=== PATIENT | male | born 1935 ===

== ENCOUNTER 2019-09-03 07:33 | Inpatient (IN) | payer MEDICARE ==
--- NOTE | 2019-09-03 08:32 | Emergency Department Report ---
<CHUCKIE MCKEON M - Last Filed: 09/03/19 12:17> ED Fall HPI - General Chief Complaint: Fall Stated Complaint: FALL/NOSE BLEED INJURY - Related Data Allergies Allergy/AdvReac Type Severity Reaction Status Date / Time No Known Allergies Allergy Verified 09/03/19 12:39 ED Course - Reevaluation(s) Reevaluation #1: I saw and examined this patient. History obtained is that he has had loss of coordination and a gait disturbance for greater than 12 hours. He states that he attempted to walk to the bathroom on the plane but had difficulty in walking. This is more than 12 hours prior to his arrival. When he disembarked, he had a near syncopal episode causing jury to his nose and left hand. He states that he recalls the incident and does not believe he lost consciousness. He does not complain of neck pain at all. He states that he is unable to walk and was found to be extremely ataxic even attempting to sit up. Indeed he was really not able to sit up due to apparent truncal ataxia. Physical exam was remarkable for HEENT the patient does have a nasal lac soft tissue swelling and deformity Neck no posterior tenderness normal range of motion without discomfort Cardiovascular regular rhythm and rate without murmur Pulmonary clear to auscultation GI the abdomen is soft nontender Musculokeletal patient has soft tissue swelling of several fingers of his left and. He is particularly tender over the PIP of the fifth digit Neurological exam The patient had no dysmetric on finger-nose testing. He had no drift. Sensory was intact. His mental status exam is intact. He did however have severe truncal ataxia. Gait could not be tested. NIH stroke score was 0 Impressions #1 near syncope #2 pulmonary hypertension #3 nasal fractures #4 for trauma to left hand Images reviewed I thought there might be a question of some asymmetric lucency in the cerebellum on the left. However this was read by the radiologist as No acute process. Chest CT showed no pulmonary embolism but pruning of vessels consistent with pulmonary hypertension. The CT of the face showed nasal fractures. I will order a hand x-ray. Plan Patient will be given aspirin. He is not a candidate for TPA. His last known well time is well more than 12 hours. I do suspect he may have had a cerebellar stroke. Further workup by the hospitalist staff upon admission. Suture per mid-level as indicated. 09/03/19 12:17 09/03/19 12:23 ED Medical Decision Making - Lab Data Result diagrams: 09/03/19 08:51 09/03/19 08:51 ED Disposition Clinical Impression: Syncopal episodes Qualifiers: Syncope type: unspecified Qualified Code(s): R55 - Syncope and collapse Nasal bone fractures Qualifiers: Encounter type: initial encounter Fracture type: closed Qualified Code(s): S02.2XXA - Fracture of nasal bones, initial encounter for closed fracture Disposition: DC-09 OP ADMIT IP TO THIS HOSP Is pt being admited?: Yes Does the pt Need Aspirin: Yes Condition: Stable Instructions: Syncope (ED) Time of Disposition: 12:30 <JULIAN LIN - Last Filed: 09/03/19 14:25> ED Fall HPI - General Source: patient, EMS Mode of arrival: Stretcher - History of Present Illness Initial Comments: This is a 84-year-old male is traveling from [place] ,16 hour flight. He has been visiting [facility] for the last 2 weeks. Patient states while on the airplane he started feeling nauseated. When he got off the plane he stumbled and fell forward striking his face.. His nose began to bleed and he was brought from [facility] to [facility]. He denies chest pain, fever and nausea. At this time bleeding from the nose is controlled. He is coughing up blood with mucous. Pt reports PMH of high cholesterol. Past surgical hx of hip replacement 5 years ago. Gallbladder removal. Pt is a resident of [place] which he has a connecting flight at 7pm today. Complaint: fall -: Sudden Fall From: standing When Fall Occurred: just prior to arrival Place Fall Occurred: other (airport) Prolonged Down Time?: no Symptoms Prior to Fall: lightheadedness, other (nausea) Location: face Severity scale (0 -10): 2 Associated Symptoms: other (nausea). denies: headache, neck pain, numbness, chest paint, shortness of breath, abdominal pain, hematuria, vertigo, confusion ED Review of Systems ROS: Stated complaint: FALL/NOSE BLEED INJURY Other details as noted in HPI Comment: All other systems reviewed and negative Constitutional: no symptoms reported Respiratory: denies: cough, shortness of breath, wheezing Cardiovascular: denies: chest pain, palpitations, dyspnea on exertion, edema, syncope Gastrointestinal: nausea. denies: abdominal pain Genitourinary: denies: as per HPI Skin: other (superficial laceration to face) Neurological: denies: headache, weakness, numbness, paresthesias, confusion, abnormal gait ED Past Medical Hx - Past Medical History Hx Hypertension: No Hx CVA: No Hx Heart Attack/AMI: No Hx Congestive Heart Failure: No Hx Deep Vein Thrombosis: No Hx Pulmonary Embolism: No Hx GERD: No Additional medical history: High Cholesterol - Surgical History Past Surgical History?: Yes Hx Cholecystectomy: Yes Additional Surgical History: kristy hip replacement - Social History Smoking Status: Never Smoker Substance Use Type: None ED Physical Exam - General Limitations: No Limitations General appearance: alert, in no apparent distress - Head Head exam: Present: other (1cm superficial laceration to corner of left eye, irregular shaped laceration to bridge of nose) - Eye Eye exam: Present: normal appearance, PERRL, EOMI - Neck Neck exam: Present: normal inspection, full ROM - Respiratory Respiratory exam: Present: normal lung sounds bilaterally. Absent: respiratory distress, wheezes, rales, rhonchi, chest wall tenderness, decreased breath sounds - GI/Abdominal GI/Abdominal exam: Present: soft, normal bowel sounds. Absent: distended, tenderness, guarding, rebound, rigid - Rectal Rectal exam: Present: deferred - Extremities Exam Extremities exam: Present: normal inspection, full ROM. Absent: tenderness, calf tenderness - Back Exam Back exam: Present: normal inspection - Neurological Exam Neurological exam: Present: alert, oriented X3, CN II-XII intact - Psychiatric Psychiatric exam: Present: normal affect - Skin Skin exam: Present: warm, dry, abrasion (nose swollen superficial laceration left face and anterior nose) ED Course Vital Signs 09/03/19 09/03/19 09/03/19 08:10 10:49 11:12 Temperature 97.5 F L 98.2 F Pulse Rate 76 77 93 H Respiratory 16 18 16 Rate Blood Pressure 154/76 Blood Pressure 180/88 175/88 [Right] O2 Sat by Pulse 96 93 93 Oximetry ED Medical Decision Making - Lab Data Result diagrams: 09/03/19 08:51 09/03/19 08:51 - Radiology Data Radiology results: report reviewed CTA FINDINGS: PULMONARY ARTERIES: No pulmonary emboli. THORACIC AORTA: Mild to moderate calcific plaque but no evidence of dissection or aneurysmal dilatation. HEART: No significant abnormality. CORONARY ARTERIES: No significant calcification. PLEURA: No pleural effusion. No pneumothorax. LYMPH NODES: No significant adenopathy. LUNGS: No acute air space or interstitial disease. Minimal bibasilar atelectasis CT HEAD No acute findings CT Facial bones Nasal bone fractures Xray left hand: No acute findings Critical Care Time: No Critical care attestation.: If time is entered above; I have spent that time in minutes in the direct care of this critically ill patient, excluding procedure time.
[2019-09-03] MEDS ORDERED: SODIUM CHLORIDE 0.9% 1000 ML 1,000 ML IV ONE (09:20)
[2019-09-03] MEDS ORDERED: ONDANSETRON 4 MG/2 ML INJ IV ONE (09:21)
[2019-09-03 09:30] LABS: Hematocrit 42.8 % (35.5-45.6); Hemoglobin 14.7 gm/dl (11.8-15.2); Mean Corpuscular HGB Conc 35 % (32-34); Mean Corpuscular Volume 103 fl (84-94); Platelet Count 155 K/mm3 (140-440); Red Blood Count 4.16 M/mm3 (3.65-5.03)
[2019-09-03 09:31] LABS: Alanine Aminotransferase 24 units/L (7-56); Albumin 4.4 g/dL (3.9-5); BUN/Creatinine Ratio 15; Blood Urea Nitrogen 15 mg/dL (9-20); Calcium 9.4 mg/dL (8.4-10.2); Hemolysis Index 13
[2019-09-03 10:09] LABS: INR 1.04 (0.87-1.13)
[2019-09-03 10:10] LABS: Partial Thromboplastin Time 27.5 Sec. (24.2-36.6)
--- NOTE | 2019-09-03 11:32 | Cat Scan Report ---
CT BRAIN: 09/03/2019 INDICATION / CLINICAL INFORMATION: headache/syncope. COMPARISON: None available. FINDINGS: BRAIN/INTRACRANIAL STRUCTURES: Unenhanced CT images of the brain demonstrate no evidence of acute int racranial abnormality. Ventricles and sulci are normal in size and shape for a patient of this age. There is no evidence of acute ischemic injury, hemorrhage, or mass. There are no abnormal extra-axial fluid collections. EXTRACRANIAL STRUCTURES: Unremarkable. There is evidence of nasal bone injury. Facial CT is reported separately. IMPRESSION: No acute abnormality. All CT scans at this location are performed using dose reduction to ALARA by means of automated expos ure control. Signer Name: Win Valverde MD Signed: 09/03/2019 11:27 AM Workstation Name: [email or web address]
--- NOTE | 2019-09-03 11:36 | Cat Scan Report ---
FACIAL CT 09/03/2019 HISTORY: Trauma. FINDINGS: CT images of the facial bones were obtained. Images are evaluated in the axial, coronal, an d sagittal plane. There is a fracture of the anterior margin of the nasal bones extending across the midline, best visu alized on the sagittal reformatted images. Soft tissue swelling is present, compatible with an acute fracture. There is irregularity of the position of the nasal septum, which appears to be primarily de velopmental in nature. There may be some acute superimposed buckling of the upper anterior nasal sept um. Some irregularity is seen associated with the inferior nasal spine, which may be an indication of an acute disruption of the inferior nasal spine. Some minimal mucosal thickening is present in ethmoid and maxillary sinuses. There is no evidence of air-fluid levels. IMPRESSION: Nasal bone fractures. All CT scans at this location are performed using dose reduction to ALARA by means of automated expos ure control. Signer Name: Win Valverde MD Signed: 09/03/2019 11:32 AM Workstation Name: [email or web address]
[2019-09-03 11:42] LABS: Bilirubin,Urine NEG (Negative); Blood,Urine NEG (Negative); Color,Urine Yellow (Yellow); Hyaline Casts,Urine 1 /LPF; Mucus,Urine FEW /HPF; Urobilinogen,Urine < 2.0 mg/dL (<2.0)
--- NOTE | 2019-09-03 11:44 | Cat Scan Report ---
CTA CHEST WITH IV CONTRAST INDICATION / CLINICAL INFORMATION: hemoptysis. TECHNIQUE: Axial CT images were obtained through the chest after injection of 100 mL IV contrast. 3 plane MIP an d/or 3D reconstructions were produced. All CT scans at this location are performed using CT dose redu ction for [facility] by means of automated exposure control. COMPARISON: None available. FINDINGS: PULMONARY ARTERIES: No pulmonary emboli. THORACIC AORTA: Mild to moderate calcific plaque but no evidence of dissection or aneurysmal dilatati on. HEART: No significant abnormality. CORONARY ARTERIES: No significant calcification. PLEURA: No pleural effusion. No pneumothorax. LYMPH NODES: No significant adenopathy. LUNGS: No acute air space or interstitial disease. Minimal bibasilar atelectasis. ADDITIONAL FINDINGS: Please note that the central pulmonary artery as well as the main right and left pulmonary arteries are markedly dilated. The right main pulmonary artery has a caliber of 3.8 cm. Th e left main pulmonary artery has a diameter of 3.5 cm. This is indicative of pulmonary arterial hyper tension. UPPER ABDOMEN: Incidental finding of small hepatic cyst. SKELETAL STRUCTURES: Diffuse spondylytic change within the thoracic spine. IMPRESSION: 1. No CT evidence for pulmonary embolism. 2. No acute pulmonary or pleural process. Mild bibasilar atelectasis. I see no etiology to account fo r the patient's hemoptysis. 3. Findings consistent with pulmonary arterial hypertension. Signer Name: Shahana Haro MD Signed: 09/03/2019 11:39 AM Workstation Name: [id number]
[2019-09-03 12:04] LABS: Total Cells Counted 100
[2019-09-03 12:05] LABS: Band Neutrophils # (Manual) 0.1 K/mm3; Basophils % (Manual) 0 % (0.0-1.8); Eosinophils % (Manual) 0 % (0.0-4.3); Platelet Estimate Consistent w Auto; Stomatocytes Few
[2019-09-03] MEDS ORDERED: ASPIRIN 325 MG TAB PO ONE ×2 (12:30→18:26)
[2019-09-03] MEDS ORDERED: NEOMY 3.5 MG/BACIT 400 UNITS/POLY B 5000 UNITS/GM OINT PACKET TP ONE (12:37)
[2019-09-03] MEDS ORDERED: ONDANSETRON 4 MG/2 ML INJ IV PRN (12:56)
[2019-09-03] MEDS ORDERED: ALBUTEROL 2.5 MG/3 ML NEBU IH PRN (12:56)
--- NOTE | 2019-09-03 12:59 | History and Physical Report ---
History of Present Illness Chief complaint: My legs just gave out History of present illness: 84 YO Male with HTN, HLD, OA presents to ED for evaluation. Pt states that he was in his usual state of health and was walking in the airport. Pt had recently deplaned after travelling from [facility] [place] on a 16hour "redeye" flight. Pt states that while walking on the jetway-he felt like his legs just "gave out" and he subsequently fell forward, and landed on his face, and subsequently lost consciousness. Pt regained consciousness several minutes later. EMS notified, and uopn arrival the patient was found to be in distress and transported to [facility]. Pt seen and evaluated in ED and found to have Syncope. Pt placed in observation status and admitted to the [facility] unit. Pt denies fever, chills, CP, palpitations, loss of bowel/bladder continence, unilateral leg swelling, vertigo, seizures, headache, skin rash, of recent known ill contacts. No prior admission for review. No medication listed at time of admission for reconciliation. Past History Past Medical History: other (see hpi') Past Surgical History: cholecystectomy, total hip replacement Social history: single. denies: smoking, alcohol abuse, prescription drug abuse Family history: hypertension Medications and Allergies Allergies Allergy/AdvReac Type Severity Reaction Status Date / Time No Known Allergies Allergy Verified 09/03/19 12:39 Active Meds: Active Medications Acetaminophen (Tylenol) 650 mg PO Q4H PRN PRN Reason: Pain MILD(1-3)/Fever >100.5/VARGAS Albuterol (Proventil) 2.5 mg IH Q4HRT PRN PRN Reason: Shortness Of Breath Sodium Chloride (Nacl 0.9% 1000 Ml) 1,000 mls @ 125 mls/hr IV ONCE ONE Stop: 09/03/19 17:19 Last Admin: 09/03/19 10:48 Dose: 125 mls/hr Documented by: Ondansetron HCl (Zofran) 4 mg IV Q8H PRN PRN Reason: Nausea And Vomiting Sodium Chloride (Sodium Chloride Flush Syringe 10 Ml) 10 ml IV BID JENNIFER Sodium Chloride (Sodium Chloride Flush Syringe 10 Ml) 10 ml IV PRN PRN PRN Reason: LINE FLUSH Review of Systems Constitutional: no weight loss, no weight gain, no fever, no chills Ears, nose, mouth and throat: no ear pain, no ear discharge, no tinnitis Cardiovascular: syncope, no chest pain, no orthopnea, no palpitations, no rapid/irregular heart beat, no edema, no lightheadedness, no shortness of breath Respiratory: no cough, no cough with sputum, no excessive sputum, no hemoptysis, no shortness of breath, no dyspnea on exertion Gastrointestinal: nausea, no vomiting, no diarrhea, no constipation, no change in bowel habits, no hematemesis, no coffee ground emesis Genitourinary Male: no hematuria, no flank pain, no discharge, no urinary frequency, no urinary hesitancy Rectal: no pain, no incontinence, no bleeding Musculoskeletal: no neck stiffness, no neck pain, no shooting arm pain, no arm numbness/tingling, no low back pain Integumentary: no rash, no pruritis, no sores, no wounds, no jaundice Neurological: no weakness, no parathesias, no numbness, no tingling, no seizures, no ataxia, no lack of coordination Psychiatric: no anxiety, no memory loss, no change in sleep habits, no sleep disturbances, no hypersomnia, no change in appetite, no change in libido, no suicidal ideation Endocrine: no polyphagia, no excessive thirst, no polydipsia, no polyuria, no nocturia, no excessive sweating, no flushing, no weight change Hematologic/Lymphatic: no easy bruising, no easy bleeding, no lymphadenopathy, no lymphedema Allergic/Immunologic: no urticaria, no allergic rhinitis, no persistent infections Exam - Constitutional Vitals: Temp Pulse Resp BP Pulse Ox 98.2 F 93 H 16 175/88 93 09/03/19 11:12 09/03/19 11:12 09/03/19 11:12 09/03/19 11:12 09/03/19 11:12 General appearance: Present: no acute distress, well-nourished - EENT Eyes: Present: PERRL ENT: hearing intact, clear oral mucosa - Neck Neck: Present: supple, normal ROM - Respiratory Respiratory effort: normal Respiratory: bilateral: CTA - Cardiovascular Heart Sounds: Present: S1 & S2. Absent: rub, click - Extremities Extremities: pulses symmetrical, No edema Peripheral Pulses: within normal limits - Abdominal General gastrointestinal: Present: soft, non-tender, non-distended, normal bowel sounds Male genitourinary: Present: normal - Integumentary Integumentary: Present: clear, warm, dry - Musculoskeletal Musculoskeletal: gait normal, strength equal bilaterally - Psychiatric Psychiatric: appropriate mood/affect, intact judgment & insight - Neurologic Neurologic: CNII-XII intact, moves all extremities Results - Labs CBC & Chem 7: 09/03/19 08:51 09/03/19 08:51 Labs: Abnormal lab results 09/03/19 09/03/19 Range/Units 08:51 08:51 MCV 103 H (84-94) fl MCH 35 H (28-32) pg MCHC 35 H (32-34) % Seg Neuts % (Manual) 87.0 H (40.0-70.0) % Lymphocytes % (Manual) 4.0 L (13.4-35.0) % Nucleated RBC % 1.0 H (0.0-0.9) % Seg Neutrophils # Man 8.6 H (1.8-7.7) K/mm3 Lymphocytes # (Manual) 0.4 L (1.2-5.4) K/mm3 Sodium 135 L (137-145) mmol/L Carbon Dioxide 18 L (22-30) mmol/L Glucose 150 H (75-100) mg/dL Total Bilirubin 1.60 H (0.1-1.2) mg/dL Assessment and Plan - Patient Problems (1) Syncopal episodes Current Visit: No Status: Acute Qualifiers: Syncope type: unspecified Qualified Code(s): R55 - Syncope and collapse Plan to address problem: CT head, neuro check, carotid doppler, serial blood pressure measurement, seizure precautions, thyroid panel, Echo, bnp. remote telemetry, Aubree Hallpike test (2) HTN (hypertension) Current Visit: Yes Status: Acute Qualifiers: Hypertension type: essential hypertension Qualified Code(s): I10 - Essential (primary) hypertension Plan to address problem: Monitor bp q shift, continue medical management. (3) HLD (hyperlipidemia) Current Visit: Yes Status: Acute Qualifiers: Hyperlipidemia type: mixed hyperlipidemia Qualified Code(s): E78.2 - Mixed hyperlipidemia Plan to address problem: lipid panel, low fat/low cholesterol diet (4) Nasal bone fractures Current Visit: No Status: Acute Qualifiers: Encounter type: initial encounter Fracture type: closed Qualified Code(s): S02.2XXA - Fracture of nasal bones, initial encounter for closed fracture (5) DVT prophylaxis Current Visit: Yes Status: Acute Plan to address problem: SCD to BLE while in bed, Pt ambulatory
[2019-09-03] MEDS ORDERED: SODIUM BICARB 8.4% 50 MEQ/50 ML SYRINGE IV ONE (13:00)
--- NOTE | 2019-09-03 13:25 | XRay Report ---
LEFT HAND 2 VIEW(S) INDICATION / CLINICAL INFORMATION: trauma left hand COMPARISON: None available. FINDINGS: BONES / JOINT(S): No acute fracture or subluxation. No significant arthritis. SOFT TISSUES: No significant abnormality. ADDITIONAL FINDINGS: None. Signer Name: Tish Rankin MD Signed: 09/03/2019 1:21 PM Workstation Name: [id number]
[2019-09-03 14:04] LABS: Free T4 (Free Thyroxine) 1.05 ng/dL (0.76-1.46)
[2019-09-03] MEDS ORDERED: ASPIRIN 325 MG TAB ONE (18:33)
[2019-09-03] MEDS: ACETAMINOPHEN 325 MG TAB PO PRN (22:19)
[2019-09-04 04:45] LABS: BUN/Creatinine Ratio 16; Blood Urea Nitrogen 16 mg/dL (9-20); Calcium 8.5 mg/dL (8.4-10.2); Hemolysis Index 34
[2019-09-04] MEDS: ACETAMINOPHEN 325 MG TAB PO PRN ×2 (09:17→15:58)
--- NOTE | 2019-09-04 12:41 | Discharge Summary ---
Providers - Providers Date of Admission: 09/03/19 12:56 Date of discharge: 09/05/19 Attending physician: TERRENCE PICKARD 09/04/19 10:26 Physical Therapy Evaluation and Treat [CONS] Routine Comment: Reason For Exam: placement [facility] Condition: Stable Pertinent studies: CT head Cta chest Face CT hand XRY Hospital course: 84 YO Male with crohn's disease, HTN, HLD, OA presents to ED for evaluation after having a [place]opal episode at airport. EMS notified, and transported to [facility]. Pt seen and evaluated in ED and placed in observation status and admitted to the [facility] unit. Discharge diagnosis: / Syncopal episodes likely vasovagal, CT head negative .CTA chest negative for PE /HTN (hypertension), stable / HLD (hyperlipidemia) / Nasal bone fractures, outpt f/u /Diarrhea with h/o crohn's disease, started on empiric flagyl Disposition: - TO HOME OR SELFCARE Time spent for discharge: 34 minutes Core Measure Documentation - Palliative Care Palliative Care/ Comfort Measures: Not Applicable - Core Measures Any of the following diagnoses?: none Exam - Constitutional Vitals: Temp Pulse Resp BP Pulse Ox 98.7 F 68 18 129/63 92 09/04/19 07:35 09/04/19 10:00 09/04/19 07:35 09/04/19 07:35 09/04/19 07:35 General appearance: Present: no acute distress, well-nourished - EENT Eyes: Present: PERRL ENT: hearing intact, clear oral mucosa, other (erythrema and bruises over the nose) - Neck Neck: Present: supple, normal ROM - Respiratory Respiratory effort: normal Respiratory: bilateral: CTA - Cardiovascular Heart Sounds: Present: S1 & S2. Absent: rub, click - Extremities Extremities: pulses symmetrical, No edema Peripheral Pulses: within normal limits - Abdominal General gastrointestinal: Present: soft, non-tender, non-distended, normal bowel sounds Male genitourinary: Present: normal - Integumentary Integumentary: Present: clear, warm, dry - Musculoskeletal Musculoskeletal: gait normal, strength equal bilaterally - Psychiatric Psychiatric: appropriate mood/affect, intact judgment & insight - Neurologic Neurologic: CNII-XII intact, moves all extremities Plan Activity: fall precautions Weight Bearing Status: Non-Weight Bearing Diet: low fat Follow up with: LUISA WOLF MD [Primary Care Provider] - 3-5 Days Prescriptions: metroNIDAZOLE [Flagyl] 500 mg PO Q8HR #21 tablet Loperamide [Imodium] 2 mg PO Q2H PRN #10 capsule PRN Reason: Diarrhea
[2019-09-04] MEDS: metroNIDAZOLE 500 MG TAB PO SCH ×2 (15:58→21:30)
[2019-09-04] MEDS: LOPERAMIDE 2 MG CAP PO PRN ×2 (15:59→21:31)
[2019-09-04] MEDS: SODIUM CHLORIDE 0.9% 1000 ML 1,000 ML IV SCH (16:06)
[2019-09-04] MEDS: TIMOLOL 0.5% OPHTH SOLN 5 ML OU SCH (16:06)
[2019-09-04] MEDS ORDERED: ASPIRIN EC 325 MG TAB PO ONE (18:21)
[2019-09-04] MEDS: LATANOPROST 0.005% OPHTH SOLN 2.5 ML OU SCH (23:51)
[2019-09-05] MEDS: metroNIDAZOLE 500 MG TAB PO SCH ×3 (06:41→22:09)
[2019-09-05] MEDS: SODIUM CHLORIDE 0.9% 1000 ML 1,000 ML IV SCH ×2 (09:08→22:06)
[2019-09-05] MEDS: TIMOLOL 0.5% OPHTH SOLN 5 ML OU SCH (09:09)
--- NOTE | 2019-09-05 12:34 | Progress Note ---
Assessment and Plan / Syncopal episodes likely vasovagal from underlying diarrhea and dehydration, CT head negative .CTA chest negative for PE PT recommended subacute rehabilitation /HTN (hypertension), stable Open chain to monitor BP / HLD (hyperlipidemia), continue cardiac diet / Nasal bone fractures, outpt f/u /Diarrhea with h/o crohn's disease, - started on empiric flagyl, altered stool studies for C. difficile Brief history: 84 YO Male with crohn's disease, HTN, HLD, OA presents to ED for evaluation after having a [place]opal episode at airport. EMS notified, and transported to [facility]. Pt seen and evaluated in ED and placed in observation status and admitted to the [facility] unit. Subjective Date of service: 09/04/19 Interval history: Patient seen and examined. Medical records and medication list reviewed. No acute event overnight noted by the RN. Patient denies any chest pain or difficulty breathing. Patient complaining of diarrhea and lightheadedness Discussed plan of care at bedside with patient. Objective - Exam Narrative Exam: General appearance: Present: no acute distress, well-nourished - EENT Eyes: Present: PERRL ENT: hearing intact, clear oral mucosa, other (erythrema and bruises over the nose) - Neck Neck: Present: supple, normal ROM - Respiratory Respiratory effort: normal Respiratory: bilateral: CTA - Cardiovascular Heart Sounds: Present: S1 & S2. Absent: rub, click - Extremities Extremities: pulses symmetrical, No edema Peripheral Pulses: within normal limits - Abdominal General gastrointestinal: Present: soft, non-tender, non-distended, normal bowel sounds Male genitourinary: Present: normal - Integumentary Integumentary: Present: clear, warm, dry - Musculoskeletal Musculoskeletal: gait normal, strength equal bilaterally - Psychiatric Psychiatric: appropriate mood/affect, intact judgment & insight - Neurologic Neurologic: CNII-XII intact, moves all extremities - Constitutional Vitals: Vital Signs - 12hr 09/05/19 09/05/19 09/05/19 02:49 03:13 07:11 Temperature 98.5 F 98.0 F Pulse Rate 72 75 65 Respiratory 20 20 Rate Blood Pressure 120/70 130/69 O2 Sat by Pulse 94 95 Oximetry 09/05/19 07:44 Temperature Pulse Rate Respiratory Rate Blood Pressure O2 Sat by Pulse 95 Oximetry - Labs CBC & Chem 7: 09/03/19 08:51 09/04/19 03:44 Labs: Abnormal lab results 09/04/19 09/05/19 Range/Units 22:10 12:06 POC Glucose 119 H 106 H (70-105)
--- NOTE | 2019-09-05 14:56 | Vascular Lab Report ---
"DUPLEX DOPPLER ULTRASOUND CAROTID, BILATERAL INDICATION: syncope. FINDINGS: RIGHT CAROTID: Small amount of atherosclerotic plaque. Right ICA peak systolic velocity: 85 cm/sec. Right Vertebral Artery: Antegrade flow. LEFT CAROTID: Small amount of atherosclerotic plaque. Left ICA peak systolic velocity: 117 cm/sec. Left Vertebral Artery: Antegrade flow. IMPRESSION: 1. Right Internal Carotid Artery: Less than 50% diameter stenosis. 2. Left Internal Carotid Artery: Less than 50% diameter stenosis. Velocity criteria are extrapolated from diameter data as defined by the Society of Radiologists in Ul trasound Consensus Conference, Radiology 2003; 229;340-346. Degree of Stenosis (%) || ICA PSV (cm/sec) || Plaque estimate (%) || ICA/CCA PSV Ratio Normal <125 None <2.0 <50 <125 <50 <2.0 50-69 125-230 50 2.0-4.0 70 but less than 100 >230 50 >4.0 Near occlusion High, low, or none visible variable Total occlusion None visible; no lumen N/A Signer Name: Norberto Willams MD Signed: 09/05/2019 2:51 PM Workstation Name: [email or web address]
[2019-09-05] MEDS: ACETAMINOPHEN 325 MG TAB PO PRN (22:07)
[2019-09-05] MEDS: LATANOPROST 0.005% OPHTH SOLN 2.5 ML OU SCH (22:13)
[2019-09-06] MEDS: metroNIDAZOLE 500 MG TAB PO SCH ×3 (05:28→21:47)
[2019-09-06] MEDS: TIMOLOL 0.5% OPHTH SOLN 5 ML OU SCH (08:58)
[2019-09-06] MEDS: LOPERAMIDE 2 MG CAP PO PRN (10:25)
[2019-09-06] MEDS: ACETAMINOPHEN 325 MG TAB PO PRN ×2 (11:18→21:47)
--- NOTE | 2019-09-06 11:27 | Progress Note ---
Assessment and Plan / Syncopal episode likely vasovagal from underlying diarrhea and dehydration, CT head negative .CTA chest negative for PE PT recommended subacute rehabilitation, but patient from [place] /Orthostatic hypotension - cont iv fluid, hold any BP meds /HTN (hypertension), stable - diet controlled cont to monitor BP, / HLD (hyperlipidemia), continue cardiac diet / Nasal bone fractures, outpt f/u /Diarrhea with h/o crohn's disease, - started on empiric flagyl, ordered stool studies for C. difficile Disposition: when orthostatic hypotension improves Brief history: 84 YO Male with crohn's disease, HTN, HLD, OA presents [place] ED for evaluation [place] EMS notified, and transported to [facility]. Pt seen and evaluated in ED and placed in observation status and admitted to the [facility] unit. Subjective Date of service: 09/05/19 Interval history: Patient seen and examined. Medical records and medication list reviewed. No acute event overnight noted by the RN. Patient denies any chest pain or difficulty breathing. Patient states diarrhea improved but still has lightheadedness During PT eval he was orthostatic, C. def study still pending Discussed plan of care at bedside with patient. Objective - Exam Narrative Exam: General appearance: Present: no acute distress, well-nourished - EENT Eyes: Present: PERRL ENT: hearing intact, clear oral mucosa, other (erythrema and bruises over the nose) - Neck Neck: Present: supple, normal ROM - Respiratory Respiratory effort: normal Respiratory: bilateral: CTA - Cardiovascular Heart Sounds: Present: S1 & S2. Absent: rub, click - Extremities Extremities: pulses symmetrical, No edema Peripheral Pulses: within normal limits - Abdominal General gastrointestinal: Present: soft, non-tender, non-distended, normal bowel sounds Male genitourinary: Present: normal - Integumentary Integumentary: Present: clear, warm, dry - Musculoskeletal Musculoskeletal: gait normal, strength equal bilaterally - Psychiatric Psychiatric: appropriate mood/affect, intact judgment & insight - Neurologic Neurologic: CNII-XII intact, moves all extremities - Constitutional Vitals: Vital Signs - 12hr 09/06/19 09/06/19 09/06/19 03:59 04:00 07:32 Temperature 97.6 F 98.4 F Pulse Rate 64 66 Respiratory 20 18 Rate Blood Pressure 121/67 135/64 O2 Sat by Pulse 97 97 Oximetry 09/06/19 09/06/19 09:10 10:00 Temperature Pulse Rate 71 Respiratory Rate Blood Pressure O2 Sat by Pulse 97 Oximetry - Labs CBC & Chem 7: 09/03/19 08:51 09/04/19 03:44 Labs: Abnormal lab results 09/05/19 09/05/19 09/06/19 Range/Units 12:06 21:51 07:09 POC Glucose 106 H 121 H 106 H (70-105)
--- NOTE | 2019-09-06 11:29 | Progress Note ---
Assessment and Plan / Syncopal episode likely vasovagal from underlying diarrhea and dehydration, CT head negative .CTA chest negative for PE PT recommended subacute rehabilitation, but patient from [place] - wait for step-son to come from [place] /Orthostatic hypotension - cont iv fluid, hold any BP meds /HTN (hypertension), stable - diet controlled cont to monitor BP, / HLD (hyperlipidemia), continue cardiac diet / Nasal bone fractures, outpt f/u /Diarrhea with h/o crohn's disease, - started on empiric flagyl, ordered stool studies for C. difficile Disposition: when orthostatic hypotension improves and waiting for step-son out of town to get him from the hospital Brief history: 84 YO Male with crohn's disease, HTN, HLD, OA presents to ED for evaluation [place] airport. EMS notified, and transported to [facility]. Pt seen and evaluated in ED and placed in observation status and admitted to the [facility] unit. Subjective Date of service: 09/06/19 Interval history: Patient seen and examined. Medical records and medication list reviewed. No acute event overnight noted by the RN. Patient denies any chest pain or difficulty breathing. Patient states diarrhea has improved but still feels weak During PT eval he was orthostatic, C. def study never obtained Discussed plan of care at bedside with patient. Objective - Exam Narrative Exam: General appearance: Present: no acute distress, well-nourished - EENT Eyes: Present: PERRL ENT: hearing intact, clear oral mucosa, other (erythrema and bruises over the nose and both cheek) - Neck Neck: Present: supple, normal ROM - Respiratory Respiratory effort: normal Respiratory: bilateral: CTA - Cardiovascular Heart Sounds: Present: S1 & S2. Absent: rub, click - Extremities Extremities: pulses symmetrical, No edema Peripheral Pulses: within normal limits - Abdominal General gastrointestinal: Present: soft, non-tender, non-distended, normal bowel sounds Male genitourinary: Present: normal - Integumentary Integumentary: Present: clear, warm, dry - Musculoskeletal Musculoskeletal: gait unstable, strength equal bilaterally, generalized weakness - Psychiatric Psychiatric: appropriate mood/affect, intact judgment & insight - Neurologic Neurologic: CNII-XII intact, moves all extremities - Constitutional Vitals: Vital Signs - 12hr 09/06/19 09/06/19 09/06/19 03:59 04:00 07:32 Temperature 97.6 F 98.4 F Pulse Rate 64 66 Respiratory 20 18 Rate Blood Pressure 121/67 135/64 O2 Sat by Pulse 97 97 Oximetry 09/06/19 09/06/19 09:10 10:00 Temperature Pulse Rate 71 Respiratory Rate Blood Pressure O2 Sat by Pulse 97 Oximetry - Labs CBC & Chem 7: 09/03/19 08:51 09/04/19 03:44 Labs: Abnormal lab results 09/05/19 09/05/19 09/06/19 Range/Units 12:06 21:51 07:09 POC Glucose 106 H 121 H 106 H (70-105)
[2019-09-06] MEDS: SODIUM CHLORIDE 0.9% 1000 ML 1,000 ML IV SCH ×2 (11:35→21:47)
[2019-09-06] MEDS: LATANOPROST 0.005% OPHTH SOLN 2.5 ML OU SCH (21:48)
[2019-09-07] MEDS: metroNIDAZOLE 500 MG TAB PO SCH ×3 (05:47→22:01)
[2019-09-07] MEDS: SODIUM CHLORIDE 0.9% 1000 ML 1,000 ML IV SCH (07:55)
[2019-09-07] MEDS: ACETAMINOPHEN 325 MG TAB PO PRN ×2 (07:57→22:01)
[2019-09-07] MEDS: TIMOLOL 0.5% OPHTH SOLN 5 ML OU SCH (09:18)
--- NOTE | 2019-09-07 13:59 | Progress Note ---
Assessment and Plan / Syncopal episode likely vasovagal from underlying diarrhea and dehydration, CT head negative .CTA chest negative for PE PT recommended subacute rehabilitation, [place] - wait for step-son to arrange flight accommodation /Orthostatic hypotension - likely from diarrhea - cont iv fluid, hold any BP meds - Improved /HTN (hypertension), stable - diet controlled cont to monitor BP, / HLD (hyperlipidemia), continue regular diet / Nasal bone fractures, healing properly - outpt f/u /Diarrhea with h/o crohn's disease, - started on empiric flagyl, ordered stool studies for C. difficile but could not be done Disposition: waiting for step-son to arrange for flight Brief history: 84 YO Male with crohn's disease, HTN, HLD, OA presents to ED for evaluation after [place] a [place] episode at airport. EMS notified, and transported to [facility]. Pt seen and evaluated in ED and admitted to the [facility] unit. Subjective Date of service: 09/07/19 Interval history: Patient seen and examined. Medical records and medication list reviewed. No acute event overnight noted by the RN. Patient denies any chest pain or difficulty breathing. Patient states diarrhea has improved but still feels weak C. def study never obtained as he did not have three consecutive loose stool Discussed plan of care at bedside with patient and his step son. Objective - Exam Narrative Exam: General appearance: Present: no acute distress, well-nourished - EENT Eyes: Present: PERRL ENT: hearing intact, clear oral mucosa, other (erythrema and bruises over the nose and both cheek) - Neck Neck: Present: supple, normal ROM - Respiratory Respiratory effort: normal Respiratory: bilateral: CTA - Cardiovascular Heart Sounds: Present: S1 & S2. Absent: rub, click - Extremities Extremities: pulses symmetrical, No edema Peripheral Pulses: within normal limits - Abdominal General gastrointestinal: Present: soft, non-tender, non-distended, normal bowel sounds Male genitourinary: Present: normal - Integumentary Integumentary: Present: clear, warm, dry - Musculoskeletal Musculoskeletal: gait unstable, strength equal bilaterally, generalized weakness - Psychiatric Psychiatric: appropriate mood/affect, intact judgment & insight - Neurologic Neurologic: CNII-XII intact, moves all extremities - Constitutional Vitals: Vital Signs - 12hr 09/07/19 09/07/19 09/07/19 02:02 07:01 10:00 Temperature 98.7 F 98.8 F Pulse Rate 64 70 62 Pulse Rate [ Lying] Respiratory 20 20 Rate Blood Pressure 134/67 142/73 O2 Sat by Pulse 95 93 Oximetry 09/07/19 09/07/19 09/07/19 10:12 10:19 10:26 Temperature 98.5 F Pulse Rate 58 L Pulse Rate [ 71 Lying] Respiratory 20 Rate Blood Pressure 123/66 125/54 O2 Sat by Pulse 93 Oximetry - Labs CBC & Chem 7: 09/08/19 09:19 09/08/19 09:19 Labs: Abnormal lab results 09/06/19 09/06/19 Range/Units 16:51 22:04 POC Glucose 362 H 126 H (70-105)
[2019-09-07] MEDS: CYCLOBENZAPRINE 10 MG TAB PO PRN (15:29)
[2019-09-07] MEDS: LATANOPROST 0.005% OPHTH SOLN 2.5 ML OU SCH (22:00)
[2019-09-08] MEDS: metroNIDAZOLE 500 MG TAB PO SCH (05:23)
[2019-09-08] MEDS: CYCLOBENZAPRINE 10 MG TAB PO PRN (05:25)
[2019-09-08 07:55] VITALS: BP 136/78
[2019-09-08] MEDS: LOPERAMIDE 2 MG CAP PO PRN (08:19)
[2019-09-08] MEDS: ACETAMINOPHEN 325 MG TAB PO PRN (08:19)
[2019-09-08 09:40] LABS: Hematocrit 36.5 % (35.5-45.6); Hemoglobin 12.7 gm/dl (11.8-15.2); Mean Corpuscular HGB Conc 35 % (32-34); Mean Corpuscular Volume 104 fl (84-94); Platelet Count 133 K/mm3 (140-440); Red Blood Count 3.51 M/mm3 (3.65-5.03); Red Cell Distribution Width 14.5 % (13.2-15.2)
[2019-09-08] MEDS: TIMOLOL 0.5% OPHTH SOLN 5 ML OU SCH (09:48)
[2019-09-08 10:02] LABS: BUN/Creatinine Ratio 12; Blood Urea Nitrogen 11 mg/dL (9-20); Calcium 8.3 mg/dL (8.4-10.2); Hemolysis Index 6
[2019-09-08] MEDS ORDERED: POTASSIUM CHLORIDE ER 20 MEQ TAB PO ONE (10:39)
--- NOTE | 2019-09-08 10:49 | Discharge Summary ---
Providers - Providers Date of Admission: 09/05/19 12:28 Date of discharge: 09/08/19 Attending physician: TERRENCE PICKARD 09/05/19 10:43 Occupational Therapy Evaluate and Treat [CONS] Stat Comment: Reason For Exam: Debility [facility] Condition: Stable Pertinent studies: Head CT Chest CTA Face CT carotid doppler 2d echo Hospital course: 84 YO Male with crohn's disease, HTN, HLD, OA presents to ED for evaluation [place]. EMS notified, and transported to [facility]. Pt seen and evaluated in ED and admitted to the [facility] unit. Discharge diagnosis and Mx: / Syncopal episode likely vasovagal from underlying diarrhea and dehydration, CT head negative .CTA chest negative for PE PT recommended subacute rehabilitation, [place] - discharged with step-son /Orthostatic hypotension - likely from diarrhea - provided iv fluid, hold any BP meds - Improved /HTN (hypertension), stable - diet controlled cont to monitor BP, / HLD (hyperlipidemia), continue cardiac diet / Nasal bone fractures, healing properly - outpt f/u /Diarrhea with h/o crohn's disease, - started on empiric flagyl, ordered stool studies for C. 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 Physical exam General appearance: Present: no acute distress, well-nourished - EENT Eyes: Present: PERRL ENT: hearing intact, clear oral mucosa, other (erythrema and bruises over the nose and both cheek - but improved from prior findings) - Neck Neck: Present: supple, normal ROM - Respiratory Respiratory effort: normal Respiratory: bilateral: CTA - Cardiovascular Heart Sounds: Present: S1 & S2. Absent: rub, click - Extremities Extremities: pulses symmetrical, No edema Peripheral Pulses: within normal limits - Abdominal General gastrointestinal: Present: soft, non-tender, non-distended, normal bowel sounds Male genitourinary: Present: normal - Integumentary Integumentary: Present: clear, warm, dry - Musculoskeletal Musculoskeletal: gait stable, strength equal bilaterally, generalized weakness - Psychiatric Psychiatric: appropriate mood/affect, intact judgment & insight - Neurologic Neurologic: CNII-XII intact, moves all extremities Disposition: DC-01 TO HOME OR SELFCARE Time spent for discharge: 34 minutes Core Measure Documentation - Palliative Care Palliative Care/ Comfort Measures: Not Applicable - Core Measures Any of the following diagnoses?: none Exam - Constitutional Vitals: Temp Pulse Resp BP Pulse Ox 98.6 F 70 20 136/78 97 09/08/19 07:05 09/08/19 07:05 09/07/19 23:00 09/08/19 07:05 09/08/19 07:05 Plan Activity: fall precautions Weight Bearing Status: Non-Weight Bearing Diet: low fat Additional Instructions: f/u with PCP in one week Follow up with: LUISA WOLF MD [Primary Care Provider] - 3-5 Days Prescriptions: metroNIDAZOLE [Flagyl] 500 mg PO Q8HR #21 tablet Loperamide [Imodium] 2 mg PO Q2H PRN #10 capsule PRN Reason: Diarrhea
== END 2019-09-08 12:20 | disposition home or self-care (01) | DRG 312 ==
LOC: ED 07:33 → 2B-ACE 12:56 → OBSVTOIN 09-05 12:28
PROVIDERS: ADMIT Internal Medicine; ATTEND Internal Medicine
DX: I95.1 Orthostatic hypotension (principal); K50.90 Crohn's disease, unspecified, without complications; S02.2XXA Fracture of nasal bones, initial encounter for closed fracture; I10 Essential (primary) hypertension; M19.90 Unspecified osteoarthritis, unspecified site; E86.0 Dehydration; I27.20 Pulmonary hypertension, unspecified; Z96.643 Presence of artificial hip joint, bilateral; R53.81 Other malaise; E78.2 Mixed hyperlipidemia; W18.39XA Other fall on same level, initial encounter; Y93.89 Activity, other specified; Z90.49 Acquired absence of other specified parts of digestive tract; Z82.49 Family history of ischemic heart disease and other diseases of the circulatory system; Y92.89 Other specified places as the place of occurrence of the external cause; Y99.8 Other external cause status
CPT/HCPCS: 36415; 70450; 70486; 71275; 80048; 80053; 81001; 82533; 82962; 83735; 83880; 84439; 84443; 84484; 85007; 85025; 85027; 85379; 85610; 85730; 87040; 93005; 93010; 93306; 93880; 94760; G0378; A6250; J2405; J7030; Q9967